=== PATIENT | male | born 1950 | race Caucasian/White ===

== ENCOUNTER 2019-03-01 07:52 | Inpatient (IN) ==
[2019-03-01] MEDS ORDERED: GLUCAGON 1 MG VIAL IM PRN ×2 (13:33→13:38)
[2019-03-01] MEDS ORDERED: DEXTROSE 50% 25 GM/50 ML VIAL IV PRN (13:33)
[2019-03-01] MEDS ORDERED: DEXTROSE 10% 250 ML BAG IV PRN (13:38)
[2019-03-01] MEDS ORDERED: traMADol 50 MG TABLET PO PRN (13:58)
[2019-03-01] MEDS ORDERED: SODIUM CHLORIDE 0.9% 1,000 ML IV SCH (14:00)
[2019-03-01] MEDS ORDERED: CHLORHEXIDINE 4% SOLN 118 ML BOTTLE TOP SCH (15:00)
[2019-03-01 18:45] LABS: ABG Base Excess 1.3 MMOL/L (-2.5-2.5); ABG HCO3 25.4 MMOL/L (20-26); ABG Oxygen Saturation 91.9 % (95-100); ABG PCO2 41.4 MM HG (35-48); ABG PH 7.409 (7.35-7.45); ABG PO2 63.4 MM HG (80-95); ABG TCO2 22.4 MMOL/L (23-27); Allen Test Positive; Pt O2 Delivery Device Room Air
[2019-03-01] MEDS ORDERED: CHLORHEXIDINE 0.12% ORAL RINSE 60 ML BOTTLE SWISH/SPIT SCH (21:00)
[2019-03-01] MEDS: ROSUVASTATIN 20 MG TABLET PO SCH (21:27)
[2019-03-01] MEDS: hydrALAZINE 25 MG TABLET PO SCH (21:27)
[2019-03-01] MEDS: rOPINIRole 0.25 MG TABLET PO SCH (21:28)
[2019-03-02 04:04] LABS: ABG Base Excess 2.7 MMOL/L (-2.5-2.5); ABG HCO3 27.5 MMOL/L (20-26); ABG Oxygen Saturation 93.3 % (95-100); ABG PH 7.424 (7.35-7.45); ABG PO2 71.6 MM HG (80-95); ABG TCO2 28.8 MMOL/L (23-27); Allen Test Positive; Pt O2 Delivery Device Room Air
[2019-03-02] MEDS: LEVOTHYROXINE 50 MCG TABLET PO SCH (06:08)
[2019-03-02 06:21] LABS: Basophils # 0.1 10*3/uL (0.0-0.2); Eosinophils # 0.3 10*3/uL (0.0-0.87); Eosinophils % 3.3 % (0.00-10.9); Hematocrit 43.6 VOL% (42.0-52.0); Hemoglobin 14.9 GM/DL (14.0-18.0); Immature Granulocytes % 0.3 %; Immature Granulocytes Absolute 0.02 #; Lymphocytes # 3.4 10*3/uL (1.4-4.0); Lymphocytes % 42.4 % (21.2-54.2); Mean Corpuscular HGB Conc 34.2 GM/DL (32-36); Mean Corpuscular Volume 96.5 FL (87-102); Mean Platelet Volume 10.4 FL (9.6-12.0); Monocytes % 10.8 % (1.7-12.7); Neutrophils % 42.2 % (38.7-73.9); Platelet Count 249 T/CUMM (130-400); Red Blood Count 4.52 MC/CUMM (3.8-5.5); Red Cell Distribution Width 12.2 % (9.3-17.3); White Blood Count 7.9 T/CUMM (4-12)
[2019-03-02] MEDS ORDERED: GLUCAGON 1 MG VIAL IM PRN (07:02)
[2019-03-02] MEDS ORDERED: DEXTROSE 50% 25 GM/50 ML VIAL IV PRN (07:02)
[2019-03-02] MEDS: hydrALAZINE 25 MG TABLET PO SCH ×2 (09:45→20:49)
[2019-03-02] MEDS: PANTOPRAZOLE 40 MG TABLET PO SCH (09:45)
[2019-03-02] MEDS: FLUTICASONE 50 MCG NASAL SPRAY 16 GM BOTTLE BOTH NARES SCH (09:46)
[2019-03-02] MEDS: ROSUVASTATIN 20 MG TABLET PO SCH (20:49)
[2019-03-02] MEDS: rOPINIRole 0.25 MG TABLET PO SCH (20:49)
[2019-03-03] MEDS: LEVOTHYROXINE 50 MCG TABLET PO SCH (06:39)
[2019-03-03] MEDS: CHLORHEXIDINE 0.12% ORAL RINSE 60 ML BOTTLE SWISH/SPIT SCH ×2 (09:50→21:15)
[2019-03-03] MEDS: PANTOPRAZOLE 40 MG TABLET PO SCH (09:50)
[2019-03-03] MEDS: hydrALAZINE 25 MG TABLET PO SCH ×2 (09:50→21:15)
[2019-03-03] MEDS: FLUTICASONE 50 MCG NASAL SPRAY 16 GM BOTTLE BOTH NARES SCH (09:50)
[2019-03-03] MEDS ORDERED: DEXTROSE 50% 25 GM/50 ML VIAL IV PRN (09:54)
[2019-03-03] MEDS ORDERED: GLUCAGON 1 MG VIAL IM PRN (09:54)
[2019-03-03] MEDS: SODIUM CHLORIDE 0.9% 1,000 ML IV SCH (10:05)
[2019-03-03] MEDS: PARoxetine 20 MG TABLET PO SCH (12:57)
[2019-03-03] MEDS: INSULIN REGULAR 100 UNIT/ML SUBCUT SCH ×3 (13:24→21:15)
[2019-03-03] MEDS: CHLORHEXIDINE 4% SOLN 118 ML BOTTLE TOP SCH ×3 (13:33→21:15)
[2019-03-03] MEDS ORDERED: CEFUROXIME INJ 1,500 MG in SODIUM CHLORIDE 0.9% 100 ML IV ONE (13:38)
[2019-03-03] MEDS: rOPINIRole 0.25 MG TABLET PO SCH (21:14)
[2019-03-03] MEDS: ROSUVASTATIN 20 MG TABLET PO SCH (21:14)
[2019-03-04] MEDS ORDERED: VANCOMYCIN 1,000 MG VIAL ONE (04:24)
[2019-03-04] MEDS ORDERED: PAPAVERINE 60 MG/2 ML VIAL ONE (04:24)
[2019-03-04] MEDS ORDERED: VANCOMYCIN 500 MG VIAL ONE (04:25)
[2019-03-04] MEDS ORDERED: ETOMIDATE 40 MG/20 ML VIAL IV ONE (05:48)
[2019-03-04] MEDS ORDERED: PHENYLEPHRINE DRIP 20 MG/250 ML PREMIX IV ONE (05:48)
[2019-03-04] MEDS ORDERED: HEPARIN/NACL 0.9% 2 UNITS/ML 500 ML IV ONE (05:48)
[2019-03-04] MEDS ORDERED: VECURONIUM 10 MG VIAL IV ONE (05:48)
[2019-03-04] MEDS ORDERED: CALCIUM CHLORIDE 1,000 MG/10 ML VIAL IV ONE (05:48)
[2019-03-04] MEDS ORDERED: MINERAL OIL/PETROLATUM OPH OINT 3.5 GM TUBE ONE (05:48)
[2019-03-04] MEDS ORDERED: SODIUM CHLORIDE 0.9% 1,000 ML IV ONE (05:49)
[2019-03-04] MEDS ORDERED: LACTATED RINGERS 1,000 ML IV ONE (05:49)
[2019-03-04] MEDS ORDERED: NITROGLYCERIN DRIP 50 MG/250 ML BOTTLE IV ONE (05:49)
[2019-03-04] MEDS ORDERED: SODIUM CHLORIDE 0.9% 250 ML IV ONE (05:49)
[2019-03-04] MEDS ORDERED: AMINOCAPROIC ACID 5,000 MG/20 ML VIAL ONE (05:49)
[2019-03-04] MEDS ORDERED: LIDOCAINE 2% 5 ML VIAL ONE ×2 (05:49→11:07)
[2019-03-04] MEDS ORDERED: FAMOTIDINE 20 MG TABLET PO ONE (06:00)
[2019-03-04] MEDS ORDERED: DIAZEPAM 5 MG TABLET PO ONE (06:00)
[2019-03-04] MEDS ORDERED: MIDAZOLAM 10 MG/2 ML VIAL ONE (06:05)
[2019-03-04] MEDS ORDERED: SUFentanil 250 MCG/5 ML AMP ONE (06:06)
[2019-03-04] MEDS ORDERED: CEFUROXIME INJ 1,500 MG in SYRINGE 1 EACH IV ONE (06:30)
[2019-03-04 07:35] LABS: ABG Base Excess 2.3 MMOL/L (-2.5-2.5); ABG HCO3 26.5 MMOL/L (20-26); ABG Oxygen Saturation 99.7 % (95-100); ABG PCO2 45.2 MM HG (35-48); ABG PH 7.397 (7.35-7.45); ABG TCO2 23.7 MMOL/L (23-27); Glucose Heart Surgery 189 MG/DL (74-106); Hematocrit Heart Surgery 45.5 PERCENT (42-52); Hemoglobin Heart Surgery 14.9 G/DL (14.0-18.0); Ionized Calcium Arterial 1.19 MMOL/L (1.21-1.46); PCO2 Patient Temp Arterial 45.2 MMHG; PH Patient Temp Arterial 7.397; Patient Temperature 37 CELCIUS; Potassium Heart/CVR 3.2 MMOL/L (3.5-5.1); Sodium Heart/CVR 137 MMOL/L (135-145)
[2019-03-04 09:13] LABS: Hematocrit Heart Surgery 29.4 PERCENT (42-52); Hemoglobin Heart Surgery 9.5 G/DL (14.0-18.0); PCO2 Patient Temp Venous 43.3 MM HG; PH Patient Temp Venous 7.395; PO2 Patient Temp Venous 47.5 MM HG; Potassium Heart/CVR 3.4 MMOL/L (3.5-5.1); VBG Base Excess 1.5 MEQ/L (0-4); VBG HCO3 25.5 MEQ/L (24-28); VBG Oxygen Saturation 85.5 %; VBG PCO2 45.4 MMHG (41-51); VBG PH 7.38; VBG PO2 50.8 MMHG (17-40)
[2019-03-04 09:15] LABS: Apearance,Urine CLEAR (Clear); Bilirubin,Urine Negative (Negative); Blood, Urine Moderate mg/dL (Negative); Glucose,Urine (UA) Negative (Negative); Hyaline Casts,Urine 1 /LPF (0-3); Ketones,Urine Negative (Negative); Nitrite,Urine Negative (Negative); Protein,Urine Negative; RBC,Urine 1 /HPF (0-4); Squamous Epithelial Cell,Urine Occasional /HPF (0-10); Urine Color Yellow (Yellow); Urine Specific Gravity 1.014 (1.001-1.035); Urine Urobilinogen < 2.0 EU/DL (0.2-1.0); WBC,Urine <1 /HPF (0-6)
[2019-03-04 09:41] LABS: Hematocrit Heart Surgery 32.1 PERCENT (42-52); Hemoglobin Heart Surgery 10.4 G/DL (14.0-18.0); PCO2 Patient Temp Venous 30.1 MM HG; PH Patient Temp Venous 7.523; PO2 Patient Temp Venous 40.2 MM HG; Potassium Heart/CVR 3.9 MMOL/L (3.5-5.1); VBG Base Excess 2.5 MEQ/L (0-4); VBG HCO3 26.5 MEQ/L (24-28); VBG Oxygen Saturation 89.3 %; VBG PCO2 36.5 MMHG (41-51); VBG PH 7.463; VBG PO2 52.9 MMHG (17-40)
[2019-03-04] MEDS ORDERED: ALBUMIN 5% 12.5 GM/250 ML VIAL IV ONE (09:44)
[2019-03-04] MEDS ORDERED: PHENYLEPHRINE DRIP 40 MG/250 ML PREMIX IV ONE (09:44)
[2019-03-04] MEDS ORDERED: EPINEPHrine 1 MG/10 ML SYRINGE ONE (09:44)
[2019-03-04] MEDS ORDERED: CALCIUM CHLORIDE 1,000 MG/10 ML SYRINGE IV ONE (09:44)
[2019-03-04] MEDS ORDERED: POTASSIUM CHLORIDE RIDER 100 ML IV ONE (10:01)
[2019-03-04 10:17] LABS: Hematocrit Heart Surgery 30.5 PERCENT (42-52); Hemoglobin Heart Surgery 9.8 G/DL (14.0-18.0); PCO2 Patient Temp Venous 32.8 MM HG; PH Patient Temp Venous 7.486; PO2 Patient Temp Venous 36.5 MM HG; Potassium Heart/CVR 3.9 MMOL/L (3.5-5.1); VBG Base Excess 1.8 MEQ/L (0-4); VBG HCO3 25.7 MEQ/L (24-28); VBG Oxygen Saturation 82.4 %; VBG PCO2 37.9 MMHG (41-51); VBG PH 7.441; VBG PO2 44.9 MMHG (17-40)
[2019-03-04] MEDS: LEVOTHYROXINE 50 MCG TABLET PO SCH (10:17)
[2019-03-04] MEDS: FLUTICASONE 50 MCG NASAL SPRAY 16 GM BOTTLE BOTH NARES SCH (10:18)
[2019-03-04] MEDS: INSULIN REGULAR 100 UNIT/ML SUBCUT SCH ×2 (10:18→12:33)
[2019-03-04] MEDS: SODIUM CHLORIDE 0.9% 1,000 ML IV SCH (10:18)
[2019-03-04] MEDS: hydrALAZINE 25 MG TABLET PO SCH (10:18)
[2019-03-04] MEDS: CHLORHEXIDINE 4% SOLN 118 ML BOTTLE TOP SCH (10:18)
[2019-03-04] MEDS: CHLORHEXIDINE 0.12% ORAL RINSE 60 ML BOTTLE SWISH/SPIT SCH ×2 (10:19→21:14)
[2019-03-04] MEDS: PANTOPRAZOLE 40 MG TABLET PO SCH (10:19)
[2019-03-04] MEDS: PARoxetine 20 MG TABLET PO SCH (10:19)
[2019-03-04 11:03] LABS: ABG Base Excess -0.6 MMOL/L (-2.5-2.5); ABG HCO3 23.4 MMOL/L (20-26); ABG Oxygen Saturation 97.4 % (95-100); ABG PCO2 36.2 MM HG (35-48); ABG PH 7.429 (7.35-7.45); ABG PO2 110.4 MM HG (80-95); ABG TCO2 24.5 MMOL/L (23-27); Glucose Heart Surgery 220 MG/DL (74-106); Hemoglobin Heart Surgery 11.3 G/DL (14.0-18.0); Ionized Calcium Arterial 1.18 MMOL/L (1.21-1.46); PCO2 Patient Temp Arterial 36.2 MMHG; PH Patient Temp Arterial 7.429; PO2 Patient Temp Arterial 110.4 MM HG; Patient Temperature 37 CELCIUS; Potassium Heart/CVR 3.7 MMOL/L (3.5-5.1); Sodium Heart/CVR 135 MMOL/L (135-145)
[2019-03-04] MEDS ORDERED: SODIUM BICARBONATE 50 MEQ/50 ML VIAL IV ONE (11:06)
[2019-03-04] MEDS ORDERED: DEXTROSE 5% KCL 20 MEQ 20 MEQ/1,000 ML BAG IV ONE (11:06)
[2019-03-04] MEDS ORDERED: PROTAMINE SULFATE 250 MG/25 ML VIAL IV ONE (11:06)
[2019-03-04] MEDS ORDERED: MANNITOL 100 GM/500 ML BAG IV ONE (11:06)
[2019-03-04] MEDS ORDERED: ALBUMIN 25% 25 GM/100 ML VIAL IV ONE (11:06)
[2019-03-04] MEDS ORDERED: MAGNESIUM SULFATE 5 GM/10 ML VIAL IV ONE (11:06)
[2019-03-04] MEDS ORDERED: HEPARIN 10,000 UNIT/10 ML VIAL ONE (11:07)
[2019-03-04] MEDS ORDERED: PROTAMINE SULFATE 50 MG/5 ML VIAL IV ONE ×3 (11:07→12:27)
[2019-03-04] MEDS ORDERED: FUROSEMIDE 20 MG/2 ML VIAL ONE (11:07)
[2019-03-04] MEDS ORDERED: methylPREDNISolone SOD SUC 1,000 MG/8 ML VIAL ONE (11:07)
[2019-03-04] MEDS ORDERED: DEXTROSE 50% 25 GM/50 ML VIAL IV PRN ×2 (12:33)
[2019-03-04] MEDS ORDERED: MIDAZOLAM 2 MG/2 ML VIAL IV PRN (12:33)
[2019-03-04] MEDS ORDERED: NITROPRUSSIDE 100 MG in DEXTROSE 5% 250 ML IV PRN (12:33)
[2019-03-04] MEDS ORDERED: PHENYLEPHRINE DRIP 40 MG/250 ML PREMIX IV PRN (12:33)
[2019-03-04] MEDS ORDERED: MAGNESIUM SULF RIDER 4 GM in PREMIX 1 EACH IV PRN (12:33)
[2019-03-04] MEDS ORDERED: MORPHINE 10 MG/1 ML VIAL IV PRN (12:33)
[2019-03-04] MEDS ORDERED: ONDANSETRON 4 MG/2 ML VIAL IV PRN (12:33)
[2019-03-04] MEDS ORDERED: INSULIN REGULAR 100 UNIT/ML IV PRN (12:33)
[2019-03-04] MEDS ORDERED: ACETAMINOPHEN 650 MG SUPP RECTAL PRN (12:33)
[2019-03-04] MEDS ORDERED: MAGNESIUM SULF RIDER 2 GM in PREMIX 1 EACH IV PRN (12:33)
[2019-03-04] MEDS ORDERED: LACTATED RINGERS 250 ML IV PRN (12:33)
[2019-03-04] MEDS ORDERED: CALCIUM CHLORIDE 1,000 MG/10 ML SYRINGE IV PRN (12:33)
[2019-03-04] MEDS ORDERED: SODIUM CHLORIDE 0.45% 1,000 ML IV SCH ×2 (12:33)
[2019-03-04] MEDS ORDERED: VECURONIUM 10 MG VIAL IV PRN ×2 (12:33)
[2019-03-04] MEDS ORDERED: MIDAZOLAM 10 MG/2 ML VIAL IV PRN (12:33)
[2019-03-04] MEDS ORDERED: INSULIN REGULAR DRIP 100 ML IV SCH (12:33)
[2019-03-04 12:48] LABS: ABG Base Excess -2.1 MMOL/L (-2.5-2.5); ABG HCO3 23.3 MMOL/L (20-26); ABG PCO2 42.5 MM HG (35-48); ABG PH 7.357 (7.35-7.45); ABG PO2 134.3 MM HG (80-95); ABG TCO2 24.6 MMOL/L (23-27); Glucose Heart Surgery 233 MG/DL (74-106); Hemoglobin Heart Surgery 11.9 G/DL (14.0-18.0); Potassium Heart/CVR 3.2 MMOL/L (3.5-5.1)
[2019-03-04 12:52] LABS: Basophils # 0.1 10*3/uL (0.0-0.2); Basophils % 0.6 % (0.0-0.8); Eosinophils # 0.1 10*3/uL (0.0-0.87); Eosinophils % 0.7 % (0.00-10.9); Hematocrit 33.7 VOL% (42.0-52.0); Hemoglobin 11.5 GM/DL (14.0-18.0); Immature Granulocytes % 0.5 %; Immature Granulocytes Absolute 0.05 #; Lymphocytes # 2.4 10*3/uL (1.4-4.0); Lymphocytes % 23.9 % (21.2-54.2); Mean Corpuscular HGB Conc 34.1 GM/DL (32-36); Mean Corpuscular Volume 96.8 FL (87-102); Mean Platelet Volume 10.3 FL (9.6-12.0); Monocytes % 6.1 % (1.7-12.7); Neutrophils % 68.2 % (38.7-73.9); Platelet Count 199 T/CUMM (130-400); Red Blood Count 3.48 MC/CUMM (3.8-5.5); Red Cell Distribution Width 12.3 % (9.3-17.3); White Blood Count 9.9 T/CUMM (4-12)
[2019-03-04 13:00] LABS: INR 1.3; Partial Thromboplastin Time 25.9 SECS (20.8-36.0)
[2019-03-04] MEDS ORDERED: INSULIN REGULAR 100 UNIT/ML IV ONE (13:00)
[2019-03-04] MEDS: POTASSIUM CHLORIDE RIDER 20 MEQ in PREMIX 1 EACH IV PRN ×6 (13:00→23:08)
[2019-03-04] MEDS: LACTATED RINGERS 1,000 ML IV PRN ×2 (13:08→15:25)
[2019-03-04 13:13] LABS: Troponin I 4.49 NG/ML (0.00-0.045)
[2019-03-04 13:24] LABS: Albumin 3.5 G/DL (3.4-5.0); Bilirubin,Total 1.2 MG/DL (0.2-1.0); Calcium 8.1 MG/DL (8.5-10.1); Total Protein 5.7 G/DL (6.4-8.3)
[2019-03-04] MEDS: ALBUMIN 5% 12.5 GM in PREMIX 1 EACH IV PRN ×4 (13:59→19:06)
[2019-03-04] MEDS: KETOROLAC 30 MG/1 ML VIAL IV SCH ×2 (14:00→19:32)
[2019-03-04 14:18] LABS: ABG Base Excess -3.2 MMOL/L (-2.5-2.5); ABG HCO3 21.7 MMOL/L (20-26); ABG PCO2 50.3 MM HG (35-48); ABG PH 7.285 (7.35-7.45); ABG TCO2 21.7 MMOL/L (23-27); Glucose Heart Surgery 295 MG/DL (74-106); Hematocrit Heart Surgery 34.2 PERCENT (42-52); Hemoglobin Heart Surgery 11.1 G/DL (14.0-18.0); Potassium Heart/CVR 3.6 MMOL/L (3.5-5.1)
[2019-03-04 15:16] LABS: ABG Base Excess -2.1 MMOL/L (-2.5-2.5); ABG HCO3 22.6 MMOL/L (20-26); ABG Oxygen Saturation 97.9 % (95-100); ABG PCO2 41.6 MM HG (35-48); ABG PH 7.356 (7.35-7.45); ABG TCO2 21.2 MMOL/L (23-27); Glucose Heart Surgery 301 MG/DL (74-106); Hematocrit Heart Surgery 32.1 PERCENT (42-52); Hemoglobin Heart Surgery 10.4 G/DL (14.0-18.0); Potassium Heart/CVR 4.1 MMOL/L (3.5-5.1)
[2019-03-04 16:23] LABS: ABG Base Excess -1.4 MMOL/L (-2.5-2.5); ABG HCO3 23.2 MMOL/L (20-26); ABG Oxygen Saturation 97.2 % (95-100); ABG PCO2 35.5 MM HG (35-48); ABG PH 7.414 (7.35-7.45); ABG PO2 83.8 MM HG (80-95); ABG TCO2 20.6 MMOL/L (23-27); Glucose Heart Surgery 302 MG/DL (74-106)
[2019-03-04] MEDS: MORPHINE 4 MG/1 ML VIAL IV PRN ×2 (16:23→23:23)
[2019-03-04 18:17] LABS: ABG Base Excess -1.3 MMOL/L (-2.5-2.5); ABG HCO3 23.3 MMOL/L (20-26); ABG Oxygen Saturation 96.5 % (95-100); ABG PCO2 35.6 MM HG (35-48); ABG PH 7.415 (7.35-7.45); ABG PO2 78.7 MM HG (80-95); ABG TCO2 20.9 MMOL/L (23-27); Glucose Heart Surgery 279 MG/DL (74-106); Hematocrit Heart Surgery 29.4 PERCENT (42-52); Hemoglobin Heart Surgery 9.5 G/DL (14.0-18.0); Potassium Heart/CVR 3.7 MMOL/L (3.5-5.1)
[2019-03-04] MEDS ORDERED: FUROSEMIDE 40 MG/4 ML VIAL IV ONE (18:44)
[2019-03-04] MEDS: CEFUROXIME INJ 1,500 MG in SODIUM CHLORIDE 0.9% 100 ML IV SCH (19:07)
[2019-03-04 19:20] LABS: ABG Base Excess -1.6 MMOL/L (-2.5-2.5); ABG HCO3 23.1 MMOL/L (20-26); ABG Oxygen Saturation 97.8 % (95-100); ABG PCO2 36.4 MM HG (35-48); ABG PH 7.404 (7.35-7.45); ABG PO2 90.8 MM HG (80-95); ABG TCO2 20.6 MMOL/L (23-27); Glucose Heart Surgery 282 MG/DL (74-106); Hematocrit Heart Surgery 31.9 PERCENT (42-52); Hemoglobin Heart Surgery 10.3 G/DL (14.0-18.0); Potassium Heart/CVR 3.7 MMOL/L (3.5-5.1)
[2019-03-04 19:54] LABS: CKMB % 5.5 %
[2019-03-04 19:56] LABS: Troponin I 4.07 NG/ML (0.00-0.045)
[2019-03-04] MEDS: POTASSIUM CHLORIDE RIDER 10 MEQ in PREMIX 1 EACH IV PRN (20:08)
[2019-03-04 20:16] LABS: ABG Base Excess -1.3 MMOL/L (-2.5-2.5); ABG HCO3 23.3 MMOL/L (20-26); ABG Oxygen Saturation 95.3 % (95-100); ABG PCO2 36.1 MM HG (35-48); ABG PH 7.412 (7.35-7.45); ABG PO2 70.7 MM HG (80-95); ABG TCO2 20.9 MMOL/L (23-27); Glucose Heart Surgery 272 MG/DL (74-106); Hematocrit Heart Surgery 31.1 PERCENT (42-52); Potassium Heart/CVR 4.1 MMOL/L (3.5-5.1)
[2019-03-04 22:13] LABS: Glucose Heart Surgery 271 MG/DL (74-106); Hemoglobin Heart Surgery 10.5 G/DL (14.0-18.0); PCO2 Patient Temp Venous 40.9 MM HG; PH Patient Temp Venous 7.402; Patient Temperature 37 CELCIUS; Potassium Heart/CVR 3.4 MMOL/L (3.5-5.1); Sodium Heart/CVR 139 MMOL/L (135-145); VBG Base Excess 0.1 MEQ/L (0-4); VBG HCO3 24.9 MEQ/L (24-28); VBG Oxygen Saturation 49.5 %; VBG PCO2 40.9 MMHG (41-51); VBG PH 7.402; VBG PO2 28.4 MMHG (17-40)
[2019-03-04 22:15] LABS: PO2 Patient Temp Venous 28.4 MM HG
[2019-03-05 00:13] LABS: ABG Base Excess -1.2 MMOL/L (-2.5-2.5); ABG HCO3 22.6 MMOL/L (20-26); ABG Oxygen Saturation 95.9 % (95-100); ABG PCO2 34.2 MM HG (35-48); ABG PH 7.437 (7.35-7.45); ABG PO2 85.1 MM HG (80-95); ABG TCO2 23.6 MMOL/L (23-27); Glucose Heart Surgery 237 MG/DL (74-106); Hemoglobin Heart Surgery 10.6 G/DL (14.0-18.0); Potassium Heart/CVR 3.6 MMOL/L (3.5-5.1)
[2019-03-05] MEDS: POTASSIUM CHLORIDE RIDER 20 MEQ in PREMIX 1 EACH IV PRN ×3 (00:20→05:10)
[2019-03-05 01:18] LABS: ABG Base Excess -0.9 MMOL/L (-2.5-2.5); ABG HCO3 23.6 MMOL/L (20-26); ABG Oxygen Saturation 97.9 % (95-100); ABG PCO2 37.2 MM HG (35-48); ABG PH 7.407 (7.35-7.45); ABG PO2 93.8 MM HG (80-95); ABG TCO2 21.2 MMOL/L (23-27); Glucose Heart Surgery 229 MG/DL (74-106); Hematocrit Heart Surgery 32.1 PERCENT (42-52); Hemoglobin Heart Surgery 10.4 G/DL (14.0-18.0); Potassium Heart/CVR 3.6 MMOL/L (3.5-5.1)
[2019-03-05] MEDS: MORPHINE 4 MG/1 ML VIAL IV PRN ×3 (01:38→06:16)
[2019-03-05 02:07] LABS: ABG Base Excess -1.7 MMOL/L (-2.5-2.5); ABG HCO3 22.8 MMOL/L (20-26); ABG Oxygen Saturation 96.2 % (95-100); ABG PCO2 37.6 MM HG (35-48); ABG PO2 91.1 MM HG (80-95); ABG TCO2 23.9 MMOL/L (23-27); Glucose Heart Surgery 198 MG/DL (74-106); Hemoglobin Heart Surgery 10.7 G/DL (14.0-18.0)
[2019-03-05 05:05] LABS: ABG Base Excess 0.8 MMOL/L (-2.5-2.5); ABG HCO3 25.1 MMOL/L (20-26); ABG Oxygen Saturation 94.8 % (95-100); ABG PCO2 39.3 MM HG (35-48); ABG PH 7.417 (7.35-7.45); ABG PO2 69.8 MM HG (80-95); Glucose Heart Surgery 159 MG/DL (74-106); Potassium Heart/CVR 3.5 MMOL/L (3.5-5.1)
[2019-03-05 05:10] LABS: Basophils % 0.1 % (0.0-0.8); Hematocrit 28.6 VOL% (42.0-52.0); Hemoglobin 9.8 GM/DL (14.0-18.0); Immature Granulocytes % 0.3 %; Immature Granulocytes Absolute 0.03 #; Lymphocytes # 0.9 10*3/uL (1.4-4.0); Lymphocytes % 8.2 % (21.2-54.2); Mean Corpuscular HGB Conc 34.3 GM/DL (32-36); Mean Corpuscular Volume 97.3 FL (87-102); Mean Platelet Volume 10.7 FL (9.6-12.0); Monocytes % 6.1 % (1.7-12.7); Neutrophils % 85.3 % (38.7-73.9); Platelet Count 187 T/CUMM (130-400); Red Blood Count 2.94 MC/CUMM (3.8-5.5); Red Cell Distribution Width 13.4 % (9.3-17.3); White Blood Count 11.3 T/CUMM (4-12)
[2019-03-05 05:39] LABS: CKMB % 3.8 %
[2019-03-05 05:44] LABS: Albumin 3.9 G/DL (3.4-5.0); Bilirubin,Direct 0.19 MG/DL (0.0-0.20); Bilirubin,Total 0.6 MG/DL (0.2-1.0); Calcium 7.8 MG/DL (8.5-10.1); Osmolality,Calculated 290.7 MOS/KG (273-304); Total Protein 5.9 G/DL (6.4-8.3); Troponin I 2.28 NG/ML (0.00-0.045)
[2019-03-05] MEDS: POTASSIUM CHLORIDE RIDER 10 MEQ in PREMIX 1 EACH IV PRN (05:49)
[2019-03-05 05:55] LABS: Band Neutrophils 4 % (0-10); Lymphocytes 7 % (20-55); Platelet Estimate Normal; Segmented Neutrophils 83 % (50-85); Total Cells Counted 100
[2019-03-05] MEDS: CEFUROXIME INJ 1,500 MG in SODIUM CHLORIDE 0.9% 100 ML IV SCH (06:35)
[2019-03-05] MEDS ORDERED: INSULIN REGULAR 100 UNIT/ML SUBCUT SCH (08:00)
[2019-03-05] MEDS ORDERED: KETOROLAC 30 MG/1 ML VIAL IV SCH (08:59)
[2019-03-05] MEDS: CHLORHEXIDINE 0.12% ORAL RINSE 60 ML BOTTLE SWISH/SPIT SCH ×2 (10:01→20:26)
[2019-03-05] MEDS ORDERED: DEXTROSE 10% 250 ML BAG IV PRN (10:36)
[2019-03-05] MEDS ORDERED: MAGNESIUM HYDROXIDE SUSP 30 ML UDCUP PO PRN (10:36)
[2019-03-05] MEDS ORDERED: ZALEPLON 5 MG CAPSULE PO PRN (10:36)
[2019-03-05] MEDS ORDERED: MAGNESIUM SULF RIDER 2 GM in PREMIX 1 EACH IV PRN (10:36)
[2019-03-05] MEDS ORDERED: GLUCAGON 1 MG VIAL IM PRN ×3 (10:36→17:37)
[2019-03-05] MEDS ORDERED: MAGNESIUM SULF RIDER 4 GM in PREMIX 1 EACH IV PRN (10:36)
[2019-03-05] MEDS ORDERED: ACETAMINOPHEN 325 MG TABLET PO PRN (10:36)
[2019-03-05] MEDS ORDERED: SODIUM CHLOR 0.45% KCL 20 MEQ 20 MEQ/1,000 ML BAG IV SCH (10:36)
[2019-03-05] MEDS ORDERED: DEXTROSE 50% 25 GM/50 ML VIAL IV PRN ×2 (10:36→17:37)
[2019-03-05] MEDS ORDERED: ALUMINUM/MAGNES/SIMETH MAX STR 30 ML UDCUP PO PRN (10:36)
[2019-03-05] MEDS ORDERED: ONDANSETRON 4 MG/2 ML VIAL IV PRN (10:36)
[2019-03-05] MEDS: FERROUS SULFATE 325 MG TABLET PO SCH (12:15)
[2019-03-05] MEDS: PANTOPRAZOLE 40 MG TABLET PO SCH (12:15)
[2019-03-05] MEDS: ASPIRIN EC 325 MG TABLET PO SCH (12:15)
[2019-03-05] MEDS: DOCUSATE SODIUM 100 MG CAPSULE PO SCH (12:15)
[2019-03-05] MEDS: KETOROLAC 30 MG/1 ML VIAL IV SCH ×2 (14:00→20:17)
[2019-03-05] MEDS: metFORMIN 500 MG TABLET PO SCH (20:17)
[2019-03-05] MEDS: ROSUVASTATIN 20 MG TABLET PO SCH (20:17)
[2019-03-05] MEDS: INSULIN REGULAR 100 UNIT/ML SUBCUT SCH (20:24)
[2019-03-06] MEDS: KETOROLAC 30 MG/1 ML VIAL IV SCH (02:08)
[2019-03-06] MEDS ORDERED: FUROSEMIDE 40 MG/4 ML VIAL IV ONE (06:00)
[2019-03-06 06:28] LABS: Basophils % 0.2 % (0.0-0.8); Eosinophils % 0.1 % (0.00-10.9); Hematocrit 25.8 VOL% (42.0-52.0); Hemoglobin 8.4 GM/DL (14.0-18.0); Immature Granulocytes % 0.6 %; Immature Granulocytes Absolute 0.07 #; Lymphocytes # 2.3 10*3/uL (1.4-4.0); Lymphocytes % 20.7 % (21.2-54.2); Mean Corpuscular HGB Conc 32.6 GM/DL (32-36); Mean Platelet Volume 10.8 FL (9.6-12.0); Monocytes % 8.1 % (1.7-12.7); Neutrophils % 70.3 % (38.7-73.9); Platelet Count 173 T/CUMM (130-400); Red Blood Count 2.58 MC/CUMM (3.8-5.5); Red Cell Distribution Width 13.8 % (9.3-17.3); White Blood Count 11.3 T/CUMM (4-12)
[2019-03-06 06:49] LABS: Alanine Aminotransferase 30 U/L (16-61); Albumin 3.3 G/DL (3.4-5.0); Alkaline Phosphatase 23 U/L (45-117); Aspartate Amino Transferase 24 U/L (0-37); Bilirubin,Indirect 0.3 MG/DL (0.0-1.0); Blood Urea Nitrogen 19 MG/DL (7-18); Calcium 7.7 MG/DL (8.5-10.1); Estimated Glom Filtration Rate 118 ML/MIN; Glucose 173 MG/DL (74-106); Osmolality,Calculated 288.1 MOS/KG (273-304); Total Protein 5.6 G/DL (6.4-8.3)
[2019-03-06] MEDS: ASPIRIN EC 325 MG TABLET PO SCH (09:08)
[2019-03-06] MEDS: rOPINIRole 0.25 MG TABLET PO SCH (09:08)
[2019-03-06] MEDS: PANTOPRAZOLE 40 MG TABLET PO SCH (09:08)
[2019-03-06] MEDS: hydrALAZINE 25 MG TABLET PO SCH (09:08)
[2019-03-06] MEDS: FERROUS SULFATE 325 MG TABLET PO SCH (09:08)
[2019-03-06] MEDS: metFORMIN 500 MG TABLET PO SCH ×2 (09:08→21:09)
[2019-03-06] MEDS: ATENOLOL 50 MG TABLET PO SCH (09:08)
[2019-03-06] MEDS: CHLORTHALIDONE 25 MG TABLET PO SCH (09:08)
[2019-03-06] MEDS: DOCUSATE SODIUM 100 MG CAPSULE PO SCH (09:08)
[2019-03-06] MEDS: LEVOTHYROXINE 50 MCG TABLET PO SCH (09:08)
[2019-03-06] MEDS: PARoxetine 20 MG TABLET PO SCH (09:08)
[2019-03-06] MEDS: INSULIN REGULAR 100 UNIT/ML SUBCUT SCH ×4 (09:09→21:13)
[2019-03-06] MEDS: CHLORHEXIDINE 0.12% ORAL RINSE 60 ML BOTTLE SWISH/SPIT SCH ×2 (09:13→21:11)
[2019-03-06] MEDS: ROSUVASTATIN 20 MG TABLET PO SCH (21:09)
[2019-03-07 05:05] LABS: Basophils % 0.4 % (0.0-0.8); Eosinophils # 0.2 10*3/uL (0.0-0.87); Eosinophils % 1.5 % (0.00-10.9); Hematocrit 25.3 VOL% (42.0-52.0); Hemoglobin 8.1 GM/DL (14.0-18.0); Immature Granulocytes % 0.6 %; Immature Granulocytes Absolute 0.06 #; Lymphocytes % 27.9 % (21.2-54.2); Mean Corpuscular Volume 100.4 FL (87-102); Monocytes % 9.8 % (1.7-12.7); Neutrophils % 59.8 % (38.7-73.9); Platelet Count 209 T/CUMM (130-400); Red Blood Count 2.52 MC/CUMM (3.8-5.5); Red Cell Distribution Width 13.5 % (9.3-17.3); White Blood Count 10.7 T/CUMM (4-12)
[2019-03-07 05:37] LABS: Alanine Aminotransferase 29 U/L (16-61); Albumin 3.4 G/DL (3.4-5.0); Alkaline Phosphatase 32 U/L (45-117); Aspartate Amino Transferase 17 U/L (0-37); Bilirubin,Indirect 0.5 MG/DL (0.0-1.0); Blood Urea Nitrogen 17 MG/DL (7-18); Calcium 8.1 MG/DL (8.5-10.1); Estimated Glom Filtration Rate 118 ML/MIN; Glucose 150 MG/DL (74-106); Osmolality,Calculated 290.8 MOS/KG (273-304); Total Protein 6.3 G/DL (6.4-8.3)
[2019-03-07 05:45] LABS: Troponin I 0.647 NG/ML (0.00-0.045)
[2019-03-07] MEDS: INSULIN REGULAR 100 UNIT/ML SUBCUT SCH ×4 (08:24→21:16)
[2019-03-07] MEDS: POTASSIUM CHLORIDE 20 MEQ TABLET PO PRN ×2 (08:51→11:22)
[2019-03-07] MEDS: rOPINIRole 0.25 MG TABLET PO SCH (08:51)
[2019-03-07] MEDS: FERROUS SULFATE 325 MG TABLET PO SCH (08:51)
[2019-03-07] MEDS: hydrALAZINE 25 MG TABLET PO SCH (08:51)
[2019-03-07] MEDS: metFORMIN 500 MG TABLET PO SCH ×2 (08:51→21:13)
[2019-03-07] MEDS: PARoxetine 20 MG TABLET PO SCH (08:52)
[2019-03-07] MEDS: PANTOPRAZOLE 40 MG TABLET PO SCH (08:52)
[2019-03-07] MEDS: LEVOTHYROXINE 50 MCG TABLET PO SCH (08:52)
[2019-03-07] MEDS: DOCUSATE SODIUM 100 MG CAPSULE PO SCH (08:52)
[2019-03-07] MEDS: ATENOLOL 50 MG TABLET PO SCH (08:52)
[2019-03-07] MEDS: CHLORTHALIDONE 25 MG TABLET PO SCH (08:52)
[2019-03-07] MEDS: ASPIRIN EC 325 MG TABLET PO SCH (08:52)
[2019-03-07] MEDS: CHLORHEXIDINE 0.12% ORAL RINSE 60 ML BOTTLE SWISH/SPIT SCH ×2 (09:04→21:15)
[2019-03-07] MEDS: ROSUVASTATIN 20 MG TABLET PO SCH (21:13)
[2019-03-08] MEDS: INSULIN REGULAR 100 UNIT/ML SUBCUT SCH ×4 (08:13→22:23)
[2019-03-08] MEDS: FERROUS SULFATE 325 MG TABLET PO SCH (09:05)
[2019-03-08] MEDS: metFORMIN 500 MG TABLET PO SCH ×2 (09:05→22:24)
[2019-03-08] MEDS: hydrALAZINE 25 MG TABLET PO SCH (09:05)
[2019-03-08] MEDS: PARoxetine 20 MG TABLET PO SCH (09:06)
[2019-03-08] MEDS: ASPIRIN EC 325 MG TABLET PO SCH (09:06)
[2019-03-08] MEDS: PANTOPRAZOLE 40 MG TABLET PO SCH (09:06)
[2019-03-08] MEDS: rOPINIRole 0.25 MG TABLET PO SCH (09:06)
[2019-03-08] MEDS: ATENOLOL 50 MG TABLET PO SCH (09:06)
[2019-03-08] MEDS: LEVOTHYROXINE 50 MCG TABLET PO SCH (09:06)
[2019-03-08] MEDS: DOCUSATE SODIUM 100 MG CAPSULE PO SCH (09:06)
[2019-03-08] MEDS: CHLORTHALIDONE 25 MG TABLET PO SCH (09:06)
[2019-03-08] MEDS: CHLORHEXIDINE 0.12% ORAL RINSE 60 ML BOTTLE SWISH/SPIT SCH ×2 (09:08→22:23)
[2019-03-08] MEDS: ROSUVASTATIN 20 MG TABLET PO SCH (22:22)
[2019-03-09 04:37] LABS: Basophils # 0.1 10*3/uL (0.0-0.2); Basophils % 0.7 % (0.0-0.8); Eosinophils # 0.4 10*3/uL (0.0-0.87); Eosinophils % 4.4 % (0.00-10.9); Hematocrit 31.6 VOL% (42.0-52.0); Hemoglobin 10.6 GM/DL (14.0-18.0); Immature Granulocytes % 0.8 %; Immature Granulocytes Absolute 0.07 #; Lymphocytes # 2.7 10*3/uL (1.4-4.0); Lymphocytes % 29.7 % (21.2-54.2); Mean Corpuscular HGB Conc 33.5 GM/DL (32-36); Mean Corpuscular Volume 96.3 FL (87-102); Mean Platelet Volume 10.6 FL (9.6-12.0); Monocytes % 9.2 % (1.7-12.7); Neutrophils % 55.2 % (38.7-73.9); Platelet Count 317 T/CUMM (130-400); Red Blood Count 3.28 MC/CUMM (3.8-5.5); Red Cell Distribution Width 13.1 % (9.3-17.3); White Blood Count 9.2 T/CUMM (4-12)
[2019-03-09 04:59] LABS: Alanine Aminotransferase 26 U/L (16-61); Albumin 3.2 G/DL (3.4-5.0); Alkaline Phosphatase 47 U/L (45-117); Aspartate Amino Transferase 15 U/L (0-37); Bilirubin,Indirect 0.6 MG/DL (0.0-1.0); Blood Urea Nitrogen 16 MG/DL (7-18); Calcium 9.2 MG/DL (8.5-10.1); Estimated Glom Filtration Rate 115 ML/MIN; Glucose 163 MG/DL (74-106); Total Protein 7.2 G/DL (6.4-8.3)
[2019-03-09] MEDS: INSULIN REGULAR 100 UNIT/ML SUBCUT SCH (08:56)
[2019-03-09] MEDS: POTASSIUM CHLORIDE 20 MEQ TABLET PO PRN ×3 (08:57→10:52)
[2019-03-09] MEDS: ASPIRIN EC 325 MG TABLET PO SCH (08:57)
[2019-03-09] MEDS: metFORMIN 500 MG TABLET PO SCH (08:57)
[2019-03-09] MEDS: LEVOTHYROXINE 50 MCG TABLET PO SCH (08:57)
[2019-03-09] MEDS: hydrALAZINE 25 MG TABLET PO SCH (08:57)
[2019-03-09] MEDS: PANTOPRAZOLE 40 MG TABLET PO SCH (08:57)
[2019-03-09] MEDS: FERROUS SULFATE 325 MG TABLET PO SCH (08:57)
[2019-03-09] MEDS: ATENOLOL 50 MG TABLET PO SCH (08:57)
[2019-03-09] MEDS: DOCUSATE SODIUM 100 MG CAPSULE PO SCH (08:57)
[2019-03-09 08:58] VITALS: BP 114/75
[2019-03-09] MEDS: CHLORTHALIDONE 25 MG TABLET PO SCH (08:58)
[2019-03-09] MEDS: PARoxetine 20 MG TABLET PO SCH (08:58)
[2019-03-09] MEDS: rOPINIRole 0.25 MG TABLET PO SCH (08:58)
[2019-03-09] MEDS: CHLORHEXIDINE 0.12% ORAL RINSE 60 ML BOTTLE SWISH/SPIT SCH (08:59)
== END 2019-03-09 11:27 | disposition home health service (06) | DRG 236 ==
LOC: N.TELEN 17:28 → N.CVR 03-04 11:53 → N.TELES 03-05 10:42